=== PATIENT | female | born 1980 | race Caucasian/White ===

== ENCOUNTER 2017-01-07 05:51 | Emergency (ER) | payer OTHER ==
[~2017-01-07] VITALS: Ht 160 cm; Wt 90.7 kg
[2017-01-07 05:51] VITALS: BP 134/93
[2017-01-07] MEDS ORDERED: NORCO 5-325 TA1 EACH PO (06:21)
[2017-01-07] MEDS ORDERED: CORTISPORIN OTI10 ML OTIC (06:21)
[2017-01-07] MEDS ORDERED: AMOXICILLIN250 MG PO (06:21)
[2017-01-09] MEDS ORDERED: PERCOCET 5-3251 EACH PO (05:50)
== END 2017-01-07 06:26 | disposition home or self-care (01) ==
LOC: ER 05:51
DX: H66.91 Otitis media, unspecified, right ear (principal); H60.8X1 Other otitis externa, right ear

== ENCOUNTER 2018-05-20 19:07 | Emergency (ER) | payer OTHER ==
[~2018-05-20] VITALS: Ht 157.5 cm; Wt 89.8 kg
[~2018-05-20 19:07] MED LIST: AMOXICILLIN250 MG PO; CORTISPORIN OTI10 ML OTIC; NORCO 5-325 TA1 EACH PO; PERCOCET 5-3251 EACH PO
[2018-05-20] MEDS ORDERED: VALIUM5 MG PO (21:17)
[2018-05-20] MEDS ORDERED: NORCO 5-325 TA1 EACH PO (21:17)
[2018-05-20] MEDS ORDERED: MOBIC15 MG PO (21:17)
[2018-05-20 21:35] VITALS: BP 164/99
== END 2018-05-20 21:35 | disposition home or self-care (01) ==
LOC: ER 19:07
DX: S16.1XXA Strain of muscle, fascia and tendon at neck level, initial encounter (principal); S39.012A Strain of muscle, fascia and tendon of lower back, initial encounter; Z88.5 Allergy status to narcotic agent; Z90.49 Acquired absence of other specified parts of digestive tract; V89.2XXA Person injured in unspecified motor-vehicle accident, traffic, initial encounter; Y93.89 Activity, other specified; Y92.410 Unspecified street and highway as the place of occurrence of the external cause; Y99.8 Other external cause status

== ENCOUNTER 2020-01-19 16:48 | Emergency (ER) | payer OTHER ==
[~2020-01-19] VITALS: Ht 157.5 cm; Wt 88.5 kg
[~2020-01-19 16:48] MED LIST changes: +MOBIC15 MG PO; +VALIUM5 MG PO
[2020-01-19 19:06] VITALS: BP 122/81
== END 2020-01-19 19:01 | disposition home or self-care (01) ==
LOC: ER 16:48
DX: B34.9 Viral infection, unspecified (principal); Z03.818 Encounter for observation for suspected exposure to other biological agents ruled out; Z88.6 Allergy status to analgesic agent

== ENCOUNTER 2020-02-03 13:22 | Emergency (ER) | payer OTHER ==
[~2020-02-03] VITALS: Ht 162.6 cm; Wt 110.2 kg
[2020-02-03 13:56] VITALS: BP 149/90
== END 2020-02-03 13:56 | disposition home or self-care (01) ==
LOC: ER 13:22
DX: U07.1 COVID-19 (principal); Z02.79 Encounter for issue of other medical certificate; Z90.49 Acquired absence of other specified parts of digestive tract; Z98.51 Tubal ligation status; Z79.899 Other long term (current) drug therapy; Z88.5 Allergy status to narcotic agent

== ENCOUNTER 2020-02-13 12:49 | Emergency (ER) | payer OTHER ==
[~2020-02-13] VITALS: Ht 160 cm; Wt 88.9 kg
[2020-02-13 14:01] VITALS: BP 158/90
== END 2020-02-13 14:01 | disposition home or self-care (01) ==
LOC: ER 12:49
DX: B34.9 Viral infection, unspecified (principal); Z20.828 Contact with and (suspected) exposure to other viral communicable diseases; Z90.49 Acquired absence of other specified parts of digestive tract; Z98.51 Tubal ligation status; Z79.899 Other long term (current) drug therapy; Z88.5 Allergy status to narcotic agent

== ENCOUNTER 2020-03-20 10:24 | Emergency (ER) | payer OTHER ==
[~2020-03-20] VITALS: Ht 160 cm; Wt 88.5 kg
[2020-03-20 11:53] VITALS: BP 118/90
== END 2020-03-20 11:57 | disposition home or self-care (01) ==
LOC: ER 10:24
DX: U07.1 COVID-19 (principal); Z90.49 Acquired absence of other specified parts of digestive tract; Z98.51 Tubal ligation status; Z88.5 Allergy status to narcotic agent

== ENCOUNTER 2021-04-14 22:02 | Emergency (ER) | payer OTHER ==
[~2021-04-14] VITALS: Ht 160 cm; Wt 90.7 kg
[2021-04-14 22:40] LABS: ABSOLUTE NEUTROPHILS 5.2 thou/uL (1.4-8.2); BASOPHILS 0.5 % (0.0-2.0); EOSINOPHILS 2.2 % (0.0-3.0); HEMATOCRIT 37.1 % (37.0-47.0); HEMOGLOBIN 12.7 gm/dL (12.0-15.0); LYMPHOCYTES 34.4 % (24.0-44.0); MCHC 34.3 g/dL (28.0-37.0); MCV 90.6 fL (80.0-100.0); PLATELET COUNT 234 thou/uL (150-400); POLYS 54.9 % (36.0-66.0); RBC 4.09 mil/uL (4.20-5.00); RDW 13.5 % (10.5-14.5); WBC 9.5 thou/uL (4.0-11.0)
[2021-04-14 22:49] LABS: ANION GAP 11 mmol/L (7-16); BUN 14 mg/dL (7-18); CALCIUM 8.3 mg/dL (8.5-10.1); CHLORIDE 104 mmol/L (98-107); CO2 25 mmol/L (21-32); CREATININE 0.7 mg/dL (0.6-1.0); GLUCOSE 144 mg/dL (74-106); POTASSIUM 3.8 mmol/L (3.5-5.1); SODIUM 140 mmol/L (136-145)
[2021-04-14 22:59] LABS: ALBUMIN 3.4 g/dL (3.4-5.0); SGOT 18 U/L (15-37); SGPT 19 U/L (30-65); TOTAL BILIRUBIN 0.3 mg/dL (0.2-1.0); TOTAL PROTEIN 7.1 g/dL (6.4-8.2); TROPONIN-I <0.06 ng/mL (<0.06)
[2021-04-14 23:25] VITALS: BP 148/75
--- NOTE | 2021-04-15 07:38 | EKG ---
[address] [address] ELECTROCARDIOGRAM REPORT Name: EMELIA ALEXANDER Room #: JONG La#: [id number] Admission: 04/14/21 Attend Phys: Discharge: 04/14/21 Date of : 78 Report #: [id number] [facility] ED Test Date: 2021-04-14 Test Time: 22:14:25 Pat Name: EMELIA ALEXANDER Department: Room: Gender: F [employer]igation System Installer: : 1980 Requested By: Dylon Fraser Order Number: [id number] MD: Mayco Mchugh Measurements Intervals [place] Rate: 71 P: 54 [place]: 146 QRS: 68 QRSD: 85 T: 48 QT: 415 QTc: 451 Interpretive Statements Sinus rhythm No previous ECG available for comparison Electronically Signed On 04-15-2021 7:38:26 CDT by Mayco Mchugh [email or web address] <ELECTRONICALLY SIGNED> By: Mayco Mchugh MD, [facility] 04/15/21 0738 2214 2214 Mayco Mchugh MD, FACC /EPI
== END 2021-04-14 23:28 | disposition home or self-care (01) ==
LOC: ER 22:02
PROVIDERS: Emergency Medicine
DX: R07.89 Other chest pain (principal); Z98.51 Tubal ligation status; F32.9 Major depressive disorder, single episode, unspecified; F41.9 Anxiety disorder, unspecified; Z88.6 Allergy status to analgesic agent